=== PATIENT | male | born 1995 | race Caucasian/White ===

== ENCOUNTER 2017-07-02 10:21 | Emergency (ER) | payer OTHER ==
[~2017-07-02] VITALS: Ht 180.3 cm; Wt 76.0 kg
[2017-07-02 10:43] VITALS: TEMP 36.7; Ht 180.3 cm; Wt 76.0 kg
--- NOTE | 2017-07-02 12:15 | DIAGNOSTIC IMAGING REPORT ---
PELVIS 1 OR 2 VIEW ROUTINE CLINICAL HISTORY: Fall. Posterior left hip pain. COMPARISON STUDY: No previous studies for comparison. FINDINGS: The sacroiliac joints and symphysis pubis are intact. No acute fracture is identified within the pelvis or hips. Alignment of both hips is anatomic. IMPRESSION: No acute fracture within the pelvis or hips. Electronically signed by: Reji Kern M.D. 07/02/2017 12:14 PM Dictated Date/Time: 07/02/2017 12:12 PM
--- NOTE | 2017-07-02 12:16 | DIAGNOSTIC IMAGING REPORT ---
L-SPINE MIN 4 VIEWS ROUTINE CLINICAL HISTORY: 5' fall, lumbar spine and posterior pelvis pain COMPARISON: None FINDINGS: Alignment of the lumbar spine is anatomic. No acute fracture is identified. Vertebral body heights are maintained. Facet joints appear intact. IMPRESSION: No acute fracture or subluxation within the lumbar spine. Electronically signed by: Reji Kern M.D. 07/02/2017 12:15 PM Dictated Date/Time: 07/02/2017 12:14 PM
--- NOTE | 2017-07-02 12:17 | DIAGNOSTIC IMAGING REPORT ---
L TIBIA/FIBULA 2 VIEWS ROUTINE CLINICAL HISTORY: fall; L lower leg pain COMPARISON: None FINDINGS: No acute fracture of the left tibia or fibula is identified. Talar dome is intact. Alignment of the left ankle appears anatomic. IMPRESSION: No acute fracture of the left tibia or fibula. Electronically signed by: Reji Kern M.D. 07/02/2017 12:16 PM Dictated Date/Time: 07/02/2017 12:15 PM
[2017-07-02 12:33] VITALS: BP 133/70; PULSE 83; O2SAT 99
--- NOTE | 2017-07-02 17:58 | EMERGENCY ROOM VISIT NOTE ---
ED Visit Note First contact with patient: 10:48 Chief Complaint: Fall. History of Present Illness: Mr. Willis is a 21-year-old white male who ambulates into the ED complaining of right posterior pelvis pain, lumbar back pain and right lower leg pain Patient reports approximately 1 hour ago he was at work climbing a brick wall. He grabbed the top brick on top of the concrete wall and the brick let loose and he fell backwards and then the brick fell onto his right lower leg. Patient reports at the time of the injury he did not strike his head or have a loss of consciousness and since the injury he has no signs of head injury. Currently patient is complaining of anterior lower leg pain over the lower half of the tibia. He describes this as a pressure-like pain. He rates his discomfort 7.5/10. His pain is nonradiating. His pain worsens with palpation dorsiflexion of the ankle and ambulation. He has not identified any alleviating factors related to the pain. He has not taken any medications for pain prior to arrival at the hospital. Additionally he is complaining of pain over the right sided L5-S1 area and over the posterior iliac crest on the right. He describes this as an achy sensation. He rates this discomfort 4/10. The pain is nonradiating. The pain worsens with palpation. He has not identified any alleviating factors related to the pain. Additionally he denies neck pain, thoracic pain, right hip pain, right knee pain , right ankle pain, right foot pain, right extremity weakness/numbness/tingling. Review of Systems: As noted above in history of present illness. All body systems were reviewed and found to be negative as noted above. Past Medical History: Undescended testicle with repair. Current Medications: Patient denies. Allergies to Medications: Patient denies. Social History: Patient is currently employed; he feels safe in his home environment; he denies tobacco and alcohol use. Tetanus Immunization Status: 5 years ago. Physical Examination: Vital Signs: Date Time Temp Pulse Resp B/P (MAP) Pulse Ox O2 Delivery O2 Flow Rate FiO2 07/02/17 12:33 83 19 133/70 99 Room Air 07/02/17 10:43 36.7 100 18 123/75 100 Room Air GENERAL: 21-year-old male in mild to moderate distress due to pain, nontoxic- appearing, afebrile and hemodynamically stable. NEUROLOGICAL: Awake, alert and oriented to person, place and time. Answering questions appropriately and following commands. Normal gait. Good hand eye coordination. SKIN: Warm, dry and pink. Right Lower Leg: Superficial abrasion over the anterior lower half of the lower leg without bleeding. There also appears to be a forming contusion under the abrasion. HEENT: Atraumatic and normocephalic. BACK: No tenderness over the bony thoracic or lumbar spine. Mild tenderness in the para musculature just right lateral to the L5-S1 area. I do not appreciate any muscle spasm. Full range of motion of the lumbar spine. Negative straight leg raise test. No CVA tenderness. THORAX: Lungs sounds are clear to auscultation and equal bilaterally with symmetrical chest wall. ABDOMEN: Flat, soft and nontender. Positive bowel sounds in all quadrants. No guarding, rigidity or organomegaly. PELVIS: Stable and nontender to compression and rock. Mild tenderness over the posterior iliac crest without bony deformity, bony crepitus, swelling or ecchymosis. RIGHT LOWER EXTREMITY: No gross bony deformity. No shortening or malrotation. No tenderness in the hip, thigh, knee, ankle or foot. Moderate tenderness over the anterior tibia where there is an abrasion and early contusion starting to development. Full range of motion in flexion and extension of the knee and plantar flexion, dorsiflexion and inversion and eversion of the ankle. Throughout the leg and foot the skin was warm and pink and capillary refill is brisk. Sensation to light touch was intact. ED Course: Patient is assessed as noted above. Patient's medication list was reviewed. Pelvis X-Ray: Was read by myself and the radiologist showing no acute fractures. Lumbar Spine X-Rays: Was read by myself and the radiologist showing no acute fractures or subluxations. Right Lower Leg X-Rays: Shows no acute fractures. Patient was offered pain medication and refused. Patient's abrasion was cleansed with antibacterial soap and water and dressed with a sterile bacitracin dressing. Patient was offered nonweightbearing crutches and refused. Patient was educated about today's findings and instructed on his treatment plan ; he verbalized understanding and agreement with this plan. Clinical Impression: Fall. Work-related injury. Posterior iliac crest pain. Lumbar paraspinous muscle pain. Right lower leg pain. Disposition: Patient discharged home in stable condition; prior to departure he was reassessed and subjectively reported he was feeling better and rated his discomfort 3/10. Plan: Comfort measures including rest, ice, elevation and alternating ibuprofen and acetaminophen were discussed with the patient. Wound care and signs of infection were discussed with the patient. Patient was encouraged to follow-up with Workmen's Compensation or return to the ED for signs of infection or other symptoms related to today's fall or any new/concerning symptoms..
== END 2017-07-02 12:43 | disposition home or self-care (01) ==
LOC: C.EDB 10:25 → C.EDD 12:43
DX: S39.92XA Unspecified injury of lower back, initial encounter (principal); M79.604 Pain in right leg; M54.5 Low back pain; W17.89XA Other fall from one level to another, initial encounter; Y99.0 Civilian activity done for income or pay